=== PATIENT | female | born 1955 | race Caucasian/White ===

== ENCOUNTER 2020-09-02 08:12 | Day surgery (SDC) | payer BC ==
[2020-09-02] MEDS: Lactated Ringers 1,000 ML IV SCH (08:32)
[2020-09-02] MEDS ORDERED: fentaNYL 100 MCG/2 ML SDV ONE (09:15)
[2020-09-02] MEDS ORDERED: Propofol 200 MG/20 ML SDV ONE (09:15)
--- NOTE | 2020-09-02 13:39 | OR ---
PREOPERATIVE DIAGNOSIS: History of colon polyps. POSTOPERATIVE DIAGNOSIS: History of colon polyps. PROCEDURE PERFORMED: Attempted colonoscopy. The colonoscopy was abandoned due to extremely poor prep. COMPLICATIONS: None. SPECIMENS: None. ESTIMATED BLOOD LOSS: None. PROCEDURE IN DETAIL: This was done in the endoscopy suite. She was placed in left lateral position. First, a rectal exam was done and was normal. Scope was introduced into the rectum and I was able to slide it through the rectum, sigmoid, descending, and part way across the transverse colon until at the end of the procedure due to incredibly poor prep. There was virtually no mucosa visible and large pools of liquid stool present throughout the aforementioned colon. The scope was withdrawn. We will cancel the procedure and attempt to reschedule in the near future. BKD: 09/02/2020 10:04:15 MODL: 09/02/2020 12:29:34 /[id number]
== END 2020-09-02 10:58 | disposition home or self-care (01) ==
LOC: VM.SDS 08:12
PROVIDERS: ATTEND Surgery
DX: K59.00 Constipation, unspecified (principal); Z53.09 Procedure and treatment not carried out because of other contraindication; R53.82 Chronic fatigue, unspecified; I25.10 Atherosclerotic heart disease of native coronary artery without angina pectoris; Z86.010 Personal history of colon polyps; Z79.899 Other long term (current) drug therapy; Z79.82 Long term (current) use of aspirin; Z01.812 Encounter for preprocedural laboratory examination; Z20.822 Contact with and (suspected) exposure to COVID-19
CPT/HCPCS: 00812; J2704; J3010; J7120; U0002

== ENCOUNTER 2022-09-02 13:21 | Emergency (ER) | payer BC, MEDICARE ==
[2022-09-02 14:22] LABS: ANION GAP 12.5 mmol/L (5-15); CHLORIDE,CL 103 mmol/L (98-107); ESTIMATED GFR 95 mL/min (>=60); SODIUM,NA 141 mmol/L (136-145)
[2022-09-02 15:09] LABS: CORONAVIRUS COVID-19 NAA NEGATIVE (NEGATIVE)
[2022-09-02] MEDS ORDERED: Iopamidol 755 Mg/ML 100 ML Bottle IVPUSH ONE (15:23)
== END 2022-09-02 17:18 | disposition home or self-care (01) ==
LOC: VM.ED 13:21
DX: R53.1 Weakness (principal); Z79.82 Long term (current) use of aspirin; Z87.891 Personal history of nicotine dependence
CPT/HCPCS: 0240U; 70450; 71046; 71275; 80053; 81001; 82550; 84484; 85025; 85379; 86140; 93005; 93010; 99284; 99285; Q9967

== ENCOUNTER 2025-01-26 17:29 | Emergency (ER) | payer BC, MEDICARE ==
[2025-01-26 19:06] LABS: BASOPHILS PERCENT AUTO 0.3 % (0.2-1.2); EOSINOPHILS ABSOLUTE AUTO 0.3 x10^3/uL (0.0-0.5); HEMOGLOBIN 12.3 g/dL (12.0-16.0); IMMATURE GRAN ABSOLUTE AUTO 0.01 x10^3/uL (0.00-0.07); LYMPHOCYTES ABSOLUTE AUTO 2.3 x10^3/uL (1.0-4.8); LYMPHOCYTES PERCENT AUTO 34.6 % (25.0-50.0); MEAN CORPUSCULAR HGB CONC 33.2 g/dL (32.0-36.0); MEAN CORPUSCULAR VOLUME 90.2 fL (78.0-93.0); MONOCYTES ABSOLUTE AUTO 0.4 x10^3/uL (0.0-0.8); MONOCYTES PERCENT AUTO 6.1 % (2.0-11.0); NEUTROPHILS ABSOLUTE AUTO 3.6 x10^3/uL (1.8-7.7); NEUTROPHILS PERCENT AUTO 53.9 % (50.0-80.0); PLATELET COUNT,PLT 276 x10^3/uL (130-400); WHITE BLOOD CELL COUNT,WBC 6.7 x10^3/uL (4.0-10.0)
[2025-01-26 19:27] LABS: A/G RATIO 0.97; ALANINE AMINOTRANSFERASE,ALT 21 U/L (14-59); ALBUMIN 3.6 g/dL (3.4-5.0); ALKALINE PHOSPHATASE 78 U/L (46-116); ASPARTATE AMNIOTRANSFERASE,AST 15 U/L (15-37); BILIRUBIN TOTAL 0.3 mg/dL (0.2-1.0); BLOOD UREA NITROGEN,BUN 25 mg/dL (7-18); CALCIUM 9.1 mg/dL (8.5-10.1); CARBON DIOXIDE,CO2 29 mmol/L (21-32); CHLORIDE,CL 104 mmol/L (98-107); CREATININE 0.7 mg/dL (0.55-1.02); GLUCOSE RANDOM 88 mg/dL (70-99); POTASSIUM,K 4.3 mmol/L (3.5-5.1); PROTEIN TOTAL,TP 7.3 g/dL (6.4-8.2); SODIUM,NA 140 mmol/L (136-145)
[2025-01-26 19:30] LABS: ANION GAP 11.3 mmol/L (5-15); ESTIMATED GFR 93 mL/min (>=60)
== END 2025-01-26 20:06 | disposition home or self-care (01) ==
LOC: VM.ED 17:29
DX: H53.9 Unspecified visual disturbance (principal); I25.10 Atherosclerotic heart disease of native coronary artery without angina pectoris; Z79.82 Long term (current) use of aspirin; Z79.899 Other long term (current) drug therapy
CPT/HCPCS: 36415; 70450; 80053; 85025; 93005; 93010; 99284